=== PATIENT | male | born 1930 | race Caucasian/White ===

== ENCOUNTER → 2020-06-22 | Outpatient (CLI) | payer OTHER ==
[~2020-06-22] MED LIST: ASA81BEC PO; CARBIDOPA-LEVO1 EAC9 PO; COSOPT OCUMETER10 M1 OPHTHALMIC; FISH OIL 1,0001 EAC9 PO; FLAX SEED OIL1000 MG PO; GARLIC500 MG PO; LATANOPROST 0.2.5 ML OPHTHALMIC; LIPITOR 40 MG T40 M1 PO; MULTI VITAMIN1 EACH PO; RAMIPRIL2.5 MG PO; TRULANCE3 MG PO; VITAMIN C500 M1 PO; VITAMIN D325 MC2 PO
== END ==
LOC: LAB 09:22
PROVIDERS: ATTEND Ophthalmology
DX: Z01.812 Encounter for preprocedural laboratory examination (principal); Z20.822 Contact with and (suspected) exposure to COVID-19

== ENCOUNTER 2020-06-25 06:40 | Day surgery (SDC) | payer OTHER ==
[~2020-06-25] VITALS: Ht 188 cm; Wt 94.8 kg
--- NOTE | ~2020-06-25 | O ---
[facility] [place] [address] OPERATIVE REPORT Name: JEFF PARK Room #: 150-5 [facility]#: [id number] Admission: 06/25/20 Attend Phys: Shekhar Resendez MD Discharge: Date of : [birth year] Report #: [id number] THIS REPORT FOR: cc: FAM - No family physician/PCP FAM - No family physician/PCP Shekhar Resendez MD ~ DATE OF SERVICE: 06/25/2020 SURGEON: Shekhar Resendez MD WALLPAPERER: None. PREOPERATIVE DIAGNOSIS: Bilateral lower lid ectropion. POSTOPERATIVE DIAGNOSIS: Bilateral lower lid ectropion. OPERATION PERFORMED: Bilateral lower lid ectropion repair. ANESTHESIA: Local with IV sedation. COMPLICATIONS: None. INDICATIONS FOR PROCEDURE: This patient has bilateral acquired lower lid ectropion with chronic tearing, keratopathy and discharge. The current procedures are undertaken in order to improve the patient's visual function, lacrimal outflow, and level of comfort. Informed consent was obtained to include but not limit to the risk of loss of vision, bleeding, infection, scarring, failure to improve the problem and need for further surgery. DESCRIPTION OF OPERATION: The patient was taken to the operating room where 2% Xylocaine with epinephrine mixed with equal parts of 0.75% Marcaine with Wydase was administered transcutaneously and transconjunctivally to each lower lid and lateral canthal area. The patient was then prepped and draped in the usual sterile fashion. A Hoa clamp was then used to clamp the left lateral canthus following which a sharp canthotomy and cantholysis were performed. The tarsal strip was prepared laterally, removing the lash bearing portion of the redundant lid margin and the redundant tarsal plate. Hemostasis was achieved with a monopolar cautery, as it was throughout the case. The tarsal strip was then secured to the internal portion of the lateral orbital tubercle with two interrupted 5-0 Prolene sutures. The lateral canthal angle was sharply reformed as the subcutaneous structures and the skin were closed with multiple interrupted 6-0 plain gut sutures. Attention was then turned to the right side where the same procedure was performed. The wounds were cleaned and dressed with ophthalmic antibiotic [address] [address] OPERATIVE REPORT Name: JEFF PARK Room #: 150-5 [facility]#: [id number] Admission: 06/25/20 Attend Phys: Shekhar Resendez MD Discharge: Date of : [birth year] Report #: [id number] ointment. The patient was then transported to the recovery area, having tolerated the procedure well with no anesthetic or operative complications being noted. By: 0905 [id number] Shekhar Resendez MD /nt
[2020-06-25 10:51] VITALS: BP 143/69
== END 2020-06-25 09:44 | disposition home or self-care (01) ==
LOC: OR 06:40 → TBA 06:41 → OR 08:43
PROVIDERS: ATTEND Ophthalmology
DX: H02.105 Unspecified ectropion of left lower eyelid (principal); H02.102 Unspecified ectropion of right lower eyelid; I10 Essential (primary) hypertension; E78.5 Hyperlipidemia, unspecified; G20 Parkinson's disease; Z98.890 Other specified postprocedural states; Z79.899 Other long term (current) drug therapy; Z87.891 Personal history of nicotine dependence; Z90.49 Acquired absence of other specified parts of digestive tract; Z88.0 Allergy status to penicillin; Z88.8 Allergy status to other drugs, medicaments and biological substances
CPT/HCPCS: 50010; 50101; 50386; 50398; 51636; 56527; 56531; 62110; 62850; 70005